=== PATIENT | female | born 1955 | race Asian ===

== ENCOUNTER 2019-11-20 17:56 | Emergency (ER) | payer OTHER ==
[2019-11-20 18:38] VITALS: BP 112/100; PULSE 84; TEMP 100.1
[2019-11-20] MEDS ORDERED: ACETAMINOPHEN 325 MG TABLET (FP) PO ONE (18:39)
--- NOTE | 2019-11-20 18:41 | PDOC ---
Rapid Medical Evaluation Chief Complaint: Cold Symptoms Time Seen by Provider: 11/20/19 18:37 Medical Evaluation: Allergies Allergy/AdvReac Type Severity Reaction Status Date / Time No Known Allergies Allergy Verified 11/20/19 18:35 Vital Signs Temp Pulse Resp BP Pulse Ox 100.1 F H 84 19 112/100 98 11/20/19 18:35 11/20/19 18:35 11/20/19 18:35 11/20/19 18:35 11/20/19 18:35 11/20/19 18:41 HPI: COVID-19 CDC guideline data points: The patient is a 63-year-old female with HLD who presents with suspected COVID- 19 with associated symptoms of fever and vomiting. ROS: NEGATIVE: difficulty breathing, shortness of breath, chest pain, lightheadedness, dizziness, nausea, vomiting and diarrhea. Other 12 point ROS reviewed and negative. Exam: General: NAD, Well-Appearing, Awake, Alert Oriented x3. Vital signs stable. ENT: No rhinorrhea or nasal congestion. Neck: FROM, no midline tenderness. Lungs: Clear to auscultation bilaterally without wheezes, rhonchi or rales. Normal excursion. Patient is able to speak in full sentences. Heart: HR: Regular rhythm, S1-S2 present, no murmurs rubs or gallops. Abdomen: Non-distended. MSK/Extremities: No decrease ROM, No obvious deformities. No obvious cyanosis noted. Neuro: Normal Gait, Cranial Nerves II through XII Grossly Intact. Skin: No obvious rashes, bruising. Color Normal Appearing. Assessment/Plan: Denies recent travel and known COVID exposure. Patient does not meet testing criteria at this time. ASSESSMENT: Denies recent travel and known Covid exposure. Treatment: Zofran rx Tylenol Isolation [facility] ED return precautions reviewed Discharge Disposition - Diagnosis Fever - Discharge Dispostion Disposition: HOME Condition at time of disposition: Stable Last Admission D/C Date: 04/09/16 Decision to Admit order: No - Prescriptions Prescriptions: Ondansetron [Zofran *Odt*] 4 mg SL TID #21 od.tablet - Referrals - Patient Instructions Printed Discharge Instructions: [facility]-Coronavirus Instructions, [facility] COVID-19 Isolation Protocol Additional Instructions: Take Zofran for nausea as prescribed Take Tylenol as needed for fever Drink plenty of fluids ISOLATE as described in the attached materials Return here if you are unable to keep down fluids or for any life-threatening symptoms You were seen for your cough and possible Coronavirus (COVID-19) Please call the [facility] testing center to make an appointment at or you can call [facility] at from 8:30 AM to 6 PM; or you can visit the [facility] website: [email or web address] for more information about testing at the [facility]. Take Tylenol 650 mg every 6 hours as needed for fever or pain. You may take Robitussin or other [id number] cough syrup. Follow the dosing instructions on the bottle. Warm tea, honey, and salt water gargles may help your symptoms. Please take precautions and self quarantine for 2 weeks and follow-up with your primary care doctor and the Department of Health. Return to the nearest emergency department for shortness of breath, difficulty breathing, chest pain, or if you have any changes in your symptoms. - Post Discharge Activity
== END 2019-11-20 18:59 | disposition home or self-care (01) ==
LOC: JER 17:56
DX: R50.9 Fever, unspecified (principal); Z20.828 Contact with and (suspected) exposure to other viral communicable diseases
CPT/HCPCS: 99283-25